=== PATIENT | female | born 2000 | race African-American/Black ===

== ENCOUNTER 2025-03-09 17:04 | Emergency (ER) | payer OTHER ==
[~2025-03-09] VITALS: Ht 157.5 cm; Wt 114.0 kg
[2025-03-09 17:09] VITALS: O2SAT 100
[2025-03-09 17:10] VITALS: BP 132/77; PULSE 83; RESP 16; TEMP 36.8; O2SAT 98
[2025-03-09 17:42] VITALS: TEMP 98.2
[2025-03-09] MEDS: ACETAMINOPHEN 325MG TABLET PO STA (17:42)
[2025-03-09] MEDS ORDERED: TOPUD MT (18:43)
== END 2025-03-09 18:39 | disposition home or self-care (01) ==
LOC: ER 17:04
DX: R07.89 Other chest pain (principal)
CPT/HCPCS: 71045; 93005; 99283